=== PATIENT | female | born 1990 | race American Indian/Alaskan Native ===

== ENCOUNTER 2022-01-08 07:25 | Day surgery (SDC) | payer MEDICAID ==
[~2022-01-08 07:25] MED LIST: ACETAMINOPHEN 500 MG TAB PO SCH; CELECOXIB 200 MG CAP PO NR; GABAPENTIN 300 MG CAP PO NR; LACTATED RINGERS 1,000 ML IV SCH; MIDAZOLAM 2 MG/2 ML INJ IV NR; SCOPOLAMINE TRANSDERMAL PATCH 72 HR TD NR
[2022-01-08] MEDS ORDERED: ONDANSETRON 4 MG/2 ML INJ IV PRN (08:58)
[2022-01-08] MEDS ORDERED: oxyCODONE /ACETAMINOPHEN 5-325MG TAB PO PRN (08:58)
[2022-01-08] MEDS ORDERED: HYDROmorphone 1 MG/1 ML INJ IV PRN (08:58)
--- NOTE | 2022-01-08 08:58 | Anesthesia Consultation ---
Anesthesia Consult and Med Hx Date of service: 01/08/22 - Airway Anesthetic Teeth Evaluation: Good ROM Head & Neck: Adequate Mental/Hyoid Distance: Adequate Mallampati Class: Class II Intubation Access Assessment: Probably Good - Pre-Operative Health Status ASA Pre-Surgery Classification: ASA2 Proposed Anesthetic Plan: General Nerve Block: TAP - Pulmonary Hx Smoking: Yes (THC) Hx Respiratory Symptoms: No - Cardiovascular System Hx Hypertension: No - Central Nervous System CVA: No - Endocrine Hx Renal Disease: No Hx Liver Disease: No Hx Insulin Dependent Diabetes: No Hx Non-Insulin Dependent Diabetes: No Hx Thyroid Disease: No - Other Systems Hx Substance Use: Yes (THC) Hx Obesity: Yes (BMI 38) - Additional Comments Anesthesia Medical History Comments: No hx anesthetic complications.
--- NOTE | 2022-01-08 08:58 | Anesthesia Day of Surgery ---
Anesthesia Day of Surgery - Day of Surgery Patient Examined: Yes Patient H&P Reviewed: Yes Patient is NPO: Yes
[2022-01-08] MEDS ORDERED: ceFAZolin/STERILE WATER 2 GM/20 ML SYRINGE IV NR (09:00)
[2022-01-08] MEDS ORDERED: dexAMETHasone 4 MG/ML VIAL ONE (09:08)
[2022-01-08] MEDS ORDERED: LIDOCAINE (1%) 10 MG/1 ML VIAL 20 ML MDV ONE (09:08)
[2022-01-08] MEDS ORDERED: BUPIVACAINE-EPINEPHRINE/PF 0.25%-1:200,000 (30 ML) VIAL INFILTRATI ONE (09:08)
[2022-01-08] MEDS ORDERED: cloNIDine/PF 1,000 MCG/10 ML VIAL EP ONE (09:08)
[2022-01-08] MEDS ORDERED: fentaNYL 100 MCG/2 ML INJ ONE ×2 (10:02→10:07)
[2022-01-08] MEDS ORDERED: LIDOCAINE PF 100 MG/5 ML (CARDIAC SYRINGE) IV ONE (10:06)
[2022-01-08] MEDS ORDERED: propofoL 200 MG/20 ML VIAL IV ONE (10:06)
[2022-01-08] MEDS ORDERED: dexAMETHasone 20 MG/5 ML VIAL ONE (10:07)
[2022-01-08] MEDS ORDERED: ONDANSETRON 4 MG/2 ML INJ ONE (10:07)
[2022-01-08] MEDS ORDERED: ROCURONIUM 50 MG/5 ML INJ IV ONE (10:07)
[2022-01-08] MEDS ORDERED: SUCCINYLCHOLINE CHLORIDE 200 MG/10 ML INJ MDV ONE (10:07)
[2022-01-08] MEDS ORDERED: WATER FOR IRRIG STERILE 1,500 ML BOTTLE IR ONE (11:14)
[2022-01-08] MEDS ORDERED: LACTATED RINGERS 1,000 ML ONE (12:04)
[2022-01-08] MEDS ORDERED: GLYCOPYRROLATE 0.4 MG/2 ML INJ ONE (12:35)
[2022-01-08] MEDS ORDERED: NEOSTIGMINE 10MG/10 ML INJ MDV ONE (12:35)
--- NOTE | 2022-01-08 12:50 | Short Stay Summary ---
Short Stay Documentation Date of service: 01/08/22 - History Principal diagnosis: incarcerated ventral hernia H&P: obtained from office - Allergies and Medications Current Medications: Allergies No Known Allergies Allergy (Verified 12/31/21 12:52) Home Medications Medication Instructions Recorded Confirmed Last Taken Type RX: Ibuprofen [Motrin 800 MG tab] 800 mg PO PRN PRN 12/31/21 12/31/21 12/20/21 History Tylenol 1,000 mg PO PRN 12/31/21 12/31/21 12/20/21 History Active Medications Acetaminophen (Acetaminophen 500 Mg Tab) 1,000 mg PO PREOP TOPHER Cefazolin Sodium (Cefazolin/Sterile Water 2 Gm/20 Ml Syringe) 2 gm IV PREOP NR Stop: 01/08/22 23:59 Celecoxib (Celecoxib 200 Mg Cap) 200 mg PO PREOP NR Stop: 01/08/22 23:59 Gabapentin (Gabapentin 300 Mg Cap) 300 mg PO PREOP NR Stop: 01/08/22 23:59 Hydromorphone HCl (Hydromorphone 1 Mg/1 Ml Inj) 0.5 mg IV Q10MIN PRN PRN Reason: Pain , Severe (7-10) Stop: 01/08/22 20:00 Lactated Ringer's (Lactated Ringers) 1,000 mls @ 100 mls/hr IV DIRECT TOPHER Stop: 01/08/22 23:59 Midazolam HCl (Midazolam 2 Mg/2 Ml Inj) 2 mg IV PREOP NR Stop: 01/08/22 23:59 Ondansetron HCl (Ondansetron 4 Mg/2 Ml Inj) 4 mg IV ONCE PRN PRN Reason: Nausea And Vomiting Stop: 01/08/22 13:00 Oxycodone/Acetaminophen (Oxycodone /Acetaminophen 5-325mg Tab) 1 tab PO ONCE PRN PRN Reason: Pain, Moderate (4-6) Stop: 01/08/22 13:00 Scopolamine (Scopolamine Transdermal Patch 72 Hr) 1 each TD PREOP NR Stop: 01/08/22 23:59 - Brief post op/procedure progress note Date of procedure: 01/08/22 Pre-op diagnosis: incarcerated ventral hernia Post-op diagnosis: same Procedure: robotic assisted ventral hernia repair with mesh Anesthesia: GETA, other (TAP block) Findings: 3 cm ventral hernia containing incarcerated preperitoneal fat Surgeon: MADISON HU Floor Scrubber: JOHANNE BOSTON Estimated blood loss: minimal Specimen disposition: to lab Condition: stable - Hospital course Hospital course: Pt observed in PACU and discharged to home in stable condition - Disposition Condition at discharge: Good Disposition: 01 HOME / SELF CARE / HOMELESS Short Stay Discharge Plan Activity: other (no heavy lifting) Diet: regular Wound: open to air, per your surgeon's advice Additional Instructions: see printed instructions Follow up with: GERMÁN SUN MD [Primary Care Provider] - 7 Days MADISON HU DO [Staff Physician] - 14 Days Prescriptions: RX: Gabapentin 200 mg PO BID #6 capsule RX: Ibuprofen [Motrin 800 MG tab] 800 mg PO PRN PRN #30 tab PRN Reason: Pain, Moderate (4-6) RX: oxyCODONE /ACETAMINOPHEN [Percocet 5/325 mg] 1 tab PO Q4H PRN #20 tablet PRN Reason: Pain , Severe (7-10)
--- NOTE | 2022-01-08 13:40 | Operative Report ---
Operative Report Operative Report: Date of procedure: 01/08/22 Pre-op diagnosis: incarcerated ventral hernia Post-op diagnosis: same Procedure: robotic assisted ventral hernia repair with mesh Anesthesia: GETA, other (TAP block) Findings: 3 cm ventral hernia containing incarcerated preperitoneal fat Surgeon: MADISON HU Passenger Rate Clerk: JOHANNE BOSTON Estimated blood loss: minimal Specimen disposition: to lab Condition: stable Hospital course: Pt observed in PACU and discharged to home in stable condition Condition at discharge: Good Disposition: 01 HOME / SELF CARE / HOMELESS HPI and indication: 31-year-old male who presents to surgery clinic for evaluation of a bulge at just above the umbilicus. This bulge has been present for some time and was partially reducible on exam. Imaging revealed an supraumbilical hernia containing incarcerated omentum. It was recommended that the hernia be repaired. All risk, benefits, alternatives surgery discussed with patient questions answered. It was recommended that the hernia be repaired robotically. Alternatives such as open versus laparoscopic repair were also discussed. The patient was in agreement and consent obtained. Procedure in detail: The patient was identified in the preoperative area and taken back to the operating room and placed on the operating room table in supine position. After anesthesia was induced, both arms were tucked with all bony prominences padded appropriately. The abdomen was then prepped and draped in usual sterile fashion and a timeout was performed. The patient had a TAP block performed by anesthesia preoperatively. A jeni incision was made in the left upper quadrant at Holley's point through which a Veress needle was inserted. The Veress needle position was confirmed using the saline drop test and the abdomen insufflated to 15 mmHg without incident. A 5 mm incision was made in the right upper quadrant through which a 5 mm Optiview trocar was placed under direct visualization. The abdomen was inspected and there was no underlying injury to any of the abdominal structures. The Veress needle was identified and removed. A 12 mm balloon trocar was placed in the right lateral abdomen and an 8 mm robotic trocar in the right lower quadrant under direct visualization. The 5 mm right upper quadrant trocar was replaced with an 8 mm robotic trocar under direct visualization. The patient was tilted to the left and the robot docked. A fenestrated bipolar was placed in arm #2 and a monopolar scissor in arm #1. The surgeon was then transferred to the console. I started by creating a preperitoneal flap to the right of the hernia defect. Ther hernia was approximately 3-4 cm superior to the umbilicus and in the midline. The peritoneum was scored to the right of the hernia defect using a monopolar scissor and a preperitoneal plane developed in an avascular plane. Using a combination of blunt dissection and cautery the plane superior to and inferior to the hernia was developed. There was preperitoneal fat incarcerated in the hernia which was carefully dissected and reduced. I then carried my preperitoneal dissection to the left aspect of the hernia defect in order to accommodate mesh placement. The patient's peritoneum was very thin towards the umbilicus and there was a moderate sized tear. Once the dissection was complete the pocket was checked for hemostasis. The hernia defect was measured at 3cm x 1.5 cm. It was decided to fix the hernia with a 15.2cm x 10.2 cm Bard ventralite composite mesh. The mesh along with suture material placed into the abdomen by the compliance assistant. The pressure in the abdomen was reduced to 8 mmHg. First the hernia defect was closed using a 0 VLoc running stitch. The mesh was then placed in the preperitoneal space and centered. The uncoated side was placed against the abdominal wall. The mesh was sutured into place in all 4 quadrants using interrupted 2-0 Vicryl stitches. The mesh laid flat in the preperitoneal space with adequate overlap of the hernia. The peritoneum was approximated using 3 0 VLoc running stitch x2. The defect in the inferior aspect of the peritoneum could not be completey closed and so the peritoneum was tacked to the mesh and ant abdominal wall using a running 3-0 Vloc. The robot was then undocked and the surgeon scrubbed back in. The remainder of the case was performed laparoscopically. All sharps and the sponge was removed under direct visualization. The 12 mm port was removed and the fascia closed with an interrupted 0-vicryl stitch using the Eric Lopez device.. The right lower quadrant port fascia was also closed with an interrupted 0 Vicryl stitch using the Eric Lopez device. The right upper quadrant port was removed and the abdomen desufflated. The skin incisions were closed with 4-0 Monocryl subcuticular stitches and skin glue. Once the glue was dry a 4 x 4 gauze was balled up and placed at the site of the hernia and secured with a Tegaderm. At the end of the case, all sponge, instrument, sharp counts were correct 2. An abdominal binder was applied to the patient. The patient was awoken from anesthesia, extubated and taken to PACU in stable condition.
--- NOTE | 2022-01-08 18:19 | Post Anesthesia Evaluation ---
- Post Anesthesia Evaluation Patient Participated: Yes Airway Patent: Yes Stable Respiratory Function: Yes Nausea/Vomiting: No Temp > 96.8F: Yes Pain Manageable: Yes Adequeate Hydration: Yes Anesthesia Complications: No
[2022-01-08 20:52] VITALS: BP 104/59
== END 2022-01-08 14:40 | disposition home or self-care (01) ==
LOC: OR 07:25
PROVIDERS: ATTEND Surgery
DX: K43.6 Other and unspecified ventral hernia with obstruction, without gangrene (principal); K21.9 Gastro-esophageal reflux disease without esophagitis; E66.9 Obesity, unspecified; Z98.891 History of uterine scar from previous surgery; Z79.899 Other long term (current) drug therapy; Z68.38 Body mass index [BMI] 38.0-38.9, adult; Z72.89 Other problems related to lifestyle; Z98.890 Other specified postprocedural states
CPT/HCPCS: 49653; 64488; 81025; C1781; J0330; J0690; J0735; J1100; J1170; J1815; J2001; J2250; J2405; J2704; J2710; J3010; J3490; J7120; S2900; 64450